=== PATIENT | male | born 1960 | race African-American/Black ===

== ENCOUNTER 2017-09-15 09:44 | Inpatient (IN) | payer OTHER ==
[~2017-09-15] VITALS: Ht 175.3 cm; Wt 105.7 kg
[2017-09-15] VITALS (199 sets, daily range): BP systolic 126–138; BP diastolic 86–99; PULSE 62–68; TEMP 97.4–98.2; O2SAT 65–100
[2017-09-15] MEDS ORDERED: LIPITOR20 MG PO (10:24)
[2017-09-15] MEDS ORDERED: TANZEUM SQ (10:24)
[2017-09-15] MEDS ORDERED: ASPIRIN 81M81 MG/TA2 PO (10:24)
[2017-09-15] MEDS ORDERED: LOTREL 10 MG-401 CAP PO (10:24)
[2017-09-15] MEDS ORDERED: HYGROTON 2525 MG/TAB PO (10:25)
[2017-09-15] MEDS ORDERED: PLAVIX 75MG TAB75 MG PO (10:25)
[2017-09-15 10:56] LABS: INR 1.1 (0.8-3.0); PARTIAL THROMBOPLASTIN TIME 30.3 SECONDS (26.0-37.0); PROTHROMBIN TIME 12.8 SECONDS (9.7-12.8)
[2017-09-15 10:57] LABS: ALANINE AMINOTRANSFERASE 43 U/L (21-72); ALBUMIN 3.6 gm/dL (3.5-5.0); ALCOHOL(ethanol),MEDICAL < 10 mg/dL; ALKALINE PHOSPHATASE 66 U/L (50-136); ANION GAP 11 mmol/L (7-16); AST,SGOT 34 U/L (15-37); BASO % 0.4 % (0.0-2.0); BILIRUBIN,TOTAL 1.7 mg/dL (0.0-1.0); BLOOD UREA NITROGEN 16 mg/dL (9-20); C-REACTIVE PROTEIN 0.5 mg/dL (0.0-0.9); CALCIUM 8.8 mg/dL (8.4-10.2); CARBON DIOXIDE 29 mmol/L (22-30); CHLORIDE 98 mmol/L (98-107); CREATININE, serum 1.27 mg/dL (0.66-1.25); EOS # 0.1 (0.0-0.7); EOS % 2.2 % (0-4.0); GLUCOSE 108 mg/dL (74-106); GRAN % 80.6 % (42.2-75.2); HEMATOCRIT 38.3 % (42.0-52.0); HEMOGLOBIN 13.3 g/dl (13.5-18.0); LYMPH # 0.5 (1.2-3.4); LYMPH % 10.6 % (20.0-51.0); MEAN CELL VOLUME 80 fl (80.0-100.0); MEAN CORPUSCULAR HEMOGLOBIN 28 pg (27.0-31.0); MEAN CORPUSCULAR HGB CONC 35 g/dl (33.0-37.0); MEAN PLATELET VOLUME 11.1 fl (7.4-10.4); MONO # 0.3 (0.1-0.6); PLATELET COUNT 168 K/mm3 (130-400); RED BLOOD COUNT 4.78 M/mm3 (4.20-5.60); REDCELL DISTRIBUTION WIDTH-CV 13.1 % (11.5-14.5); SODIUM 138 mmol/L (137-145); TOTAL PROTEIN 6.5 gm/dL (6.4-8.2)
[2017-09-15 10:58] LABS: POTASSIUM 2.9 mmol/L (3.4-5.0)
[2017-09-15 11:07] LABS: TROPONIN-I < 0.012 ng/mL (0.000-0.034)
[2017-09-15 14:02] LABS: COLLECTION METHOD CLEAN CATCH
[2017-09-15 14:09] LABS: MUCOUS Present /lpf; PH 7 (5-8); SQUAMOUS EPITHELIAL 0-2 /hpf; URINE APPEARANCE Clear; URINE BACTERIA Rare /hpf; URINE BILIRUBIN Negative (NEGATIVE); URINE BLOOD Negative (NEGATIVE); URINE COLOR Yellow; URINE GLUCOSE Negative (NEGATIVE); URINE KETONE 1+ (NEGATIVE); URINE LEUKOCYTE ESTERASE Negative (NEGATIVE); URINE NITRATE Negative (NEGATIVE); URINE PROTEIN(semi-quant) Negative (NEGATIVE)
[2017-09-15 14:13] LABS: URINE RBC None Seen /hpf
[2017-09-15 14:18] LABS: TRICYCLIC ANTIDEPRESS URINE NEGATIVE
[2017-09-16] VITALS (282 sets, daily range): BP systolic 118–147; BP diastolic 69–91; PULSE 51–67; TEMP 97.7–98.3; O2SAT 81–100
[2017-09-16 06:06] LABS: BASO % 0.5 % (0.0-2.0); EOS # 0.1 (0.0-0.7); EOS % 3.4 % (0-4.0); GRAN # 2.8 (1.4-6.5); HEMATOCRIT 39.7 % (42.0-52.0); HEMOGLOBIN 13.6 g/dl (13.5-18.0); LYMPH # 0.8 (1.2-3.4); LYMPH % 20.1 % (20.0-51.0); MEAN CELL VOLUME 81 fl (80.0-100.0); MEAN CORPUSCULAR HEMOGLOBIN 28 pg (27.0-31.0); MEAN CORPUSCULAR HGB CONC 34 g/dl (33.0-37.0); MEAN PLATELET VOLUME 11.9 fl (7.4-10.4); MONO # 0.3 (0.1-0.6); MONO % 7.8 % (1.7-9.3); PLATELET COUNT 170 K/mm3 (130-400); RED BLOOD COUNT 4.92 M/mm3 (4.20-5.60); REDCELL DISTRIBUTION WIDTH-CV 13.5 % (11.5-14.5)
[2017-09-16 06:13] LABS: CALCIUM 8.5 mg/dL (8.4-10.2); CREATININE, serum 0.97 mg/dL (0.66-1.25)
== END 2017-09-16 16:55 | disposition short-term general hospital (02) | DRG 65 ==
LOC: COL.ER 09:44 → ICU 11:43
PROVIDERS: Emergency Medicine; Hospitalist
DX: I63.511 Cerebral infarction due to unspecified occlusion or stenosis of right middle cerebral artery (principal); N17.9 Acute kidney failure, unspecified; E86.1 Hypovolemia; R47.81 Slurred speech; R29.810 Facial weakness; I10 Essential (primary) hypertension; E11.9 Type 2 diabetes mellitus without complications; E87.6 Hypokalemia
CPT/HCPCS: 99223-AI; 99233-AI; 99239; A9585; G8987-GO; G8988-GO; J1650; J3480

== ENCOUNTER → 2018-01-30 | Outpatient (CLI) | payer OTHER ==
[~2018-01-30] MED LIST: ASPIRIN 81M81 MG/TA2 PO; HYGROTON 2525 MG/TAB PO; LIPITOR20 MG PO; LOTREL 10 MG-401 CAP PO; PLAVIX 75MG TAB75 MG PO; TANZEUM SQ
== END ==
LOC: COL.CARD 09:55
DX: I63.511 Cerebral infarction due to unspecified occlusion or stenosis of right middle cerebral artery (principal)

== ENCOUNTER 2018-05-10 15:09 | Emergency (ER) | payer OTHER ==
[~2018-05-10] VITALS: Ht 177.8 cm; Wt 109.1 kg
[2018-05-10 15:19] VITALS: TEMP 98.6
[2018-05-10 16:17] LABS: BASO % 0.2 % (0.0-2.0); EOS # 0.1 (0.0-0.7); EOS % 1.5 % (0-4.0); GRAN # 7.2 (1.4-6.5); GRAN % 82.7 % (42.2-75.2); HEMATOCRIT 41.1 % (42.0-52.0); HEMOGLOBIN 14.2 g/dl (13.5-18.0); LYMPH # 0.9 (1.2-3.4); MEAN CELL VOLUME 80 fl (80.0-100.0); MEAN CORPUSCULAR HEMOGLOBIN 28 pg (27.0-31.0); MEAN CORPUSCULAR HGB CONC 35 g/dl (33.0-37.0); MEAN PLATELET VOLUME 11.9 fl (7.4-10.4); MONO # 0.5 (0.1-0.6); MONO % 5.3 % (1.7-9.3); PLATELET COUNT 175 K/mm3 (130-400); RED BLOOD COUNT 5.13 M/mm3 (4.20-5.60); REDCELL DISTRIBUTION WIDTH-CV 13.1 % (11.5-14.5)
[2018-05-10] MEDS ORDERED: LIPITOR 80MG80 MG PO (16:24)
[2018-05-10] MEDS ORDERED: JANUVIA 100MG100 MG PO (16:24)
[2018-05-10] MEDS ORDERED: ASPIRIN E.C. 8181 MG PO (16:24)
[2018-05-10] MEDS ORDERED: NORVASC 10MG10 MG PO (16:24)
[2018-05-10] MEDS ORDERED: MICARDIS20 MG PO (16:25)
[2018-05-10 16:29] LABS: ALANINE AMINOTRANSFERASE 38 U/L (21-72); ALBUMIN 4.2 gm/dL (3.5-5.0); ALKALINE PHOSPHATASE 87 U/L (50-136); ANION GAP 8 mmol/L (7-16); AST,SGOT 23 U/L (15-37); BILIRUBIN,TOTAL 1.6 mg/dL (0.0-1.0); BLOOD UREA NITROGEN 11 mg/dL (9-20); CALCIUM 8.7 mg/dL (8.4-10.2); CARBON DIOXIDE 27 mmol/L (22-30); CHLORIDE 100 mmol/L (98-107); CREATININE, serum 0.96 mg/dL (0.66-1.25); GLUCOSE 242 mg/dL (74-106); INR 1.1 (0.8-3.0); POTASSIUM 3.6 mmol/L (3.4-5.0); SODIUM 135 mmol/L (137-145); TOTAL PROTEIN 7.3 gm/dL (6.4-8.2)
[2018-05-10 16:41] LABS: D-DIMER < 200.00 ng/mLDDu (200-230)
[2018-05-10 16:42] LABS: TROPONIN-I < 0.012 ng/mL (0.000-0.035)
[2018-05-10 20:14] VITALS: BP 141/96; PULSE 96
== END 2018-05-10 20:14 | disposition home or self-care (01) ==
LOC: COL.ER 15:09
PROVIDERS: Emergency Medicine
DX: R55 Syncope and collapse (principal); E11.9 Type 2 diabetes mellitus without complications; Z86.73 Personal history of transient ischemic attack (TIA), and cerebral infarction without residual deficits; Z79.02 Long term (current) use of antithrombotics/antiplatelets; Z79.82 Long term (current) use of aspirin; Z79.84 Long term (current) use of oral hypoglycemic drugs